=== PATIENT | female | born 1985 | race Caucasian/White ===

== ENCOUNTER 2017-01-26 05:26 | Emergency (ER) | payer OTHER ==
[~2017-01-26] VITALS: Wt 95.0 kg
[~2017-01-26 05:26] MED LIST: MAA5; RANI150T9
[2017-01-26] MEDS ORDERED: KETOROLAC 60 MG INJ IM STA (06:15)
[2017-01-26 07:39] LABS: ADD UMIC YES; UR ASCORBIC ACID NEGATIVE (NEGATIVE); UR BACTERIA FEW /HPF (NONE SEEN); UR BILIRUBIN (Dip) NEGATIVE (NEGATIVE); UR BLOOD (Dip) 3+ mg/dL (NEGATIVE); UR CLARITY CLOUDY (CLEAR); UR COLOR YELLOW (YELLOW); UR GLUCOSE (Dip) NEGATIVE (NEGATIVE); UR KETONES (Dip) NEGATIVE (NEGATIVE); UR LEUKOCYTE ESTERASE (Dip) NEGATIVE Leu/ul (NEGATIVE); UR MUCUS MANY /HPF (NONE SEEN); UR NITRITE (Dip) NEGATIVE (NEGATIVE); UR RBC > 182 /HPF (0-5); UR SPECIFIC GRAVITY (Dip) 1.031 (1.003-1.030); UR SQUAMOUS EPITHELIAL CELL FEW /HPF (FEW); UR TOTAL PROTEIN (Dip) 1+ mg/dl (NEGATIVE); UR UROBILINOGEN (Dip) NEGATIVE (NEGATIVE)
[2017-01-26 08:44] LABS: BASOPHILS % 0.3 % (0.0-2.0); EOSINOPHILS % 0.1 % (0.0-7.0); HEMATOCRIT 30.7 % (37.0-47.0); HEMOGLOBIN 9.1 g/dl (12.0-16.0); LYMPHOCYTES # 1.2 10^3/ul (0.8-2.9); LYMPHOCYTES % 9.8 % (15.0-51.0); MEAN CORPUSCULAR HEMOGLOBIN 20.4 pg (29.0-33.0); MEAN CORPUSCULAR HGB CONC 29.6 g/dl (32.0-37.0); MEAN PLATELET VOLUME 9.1 fl (7.4-10.4); MONOCYTE # 0.4 10^3/ul (0.3-0.9); MONOCYTES % 3.5 % (0.0-11.0); NEUTROPHILS % 85.9 % (39.0-77.0); PLATELET COUNT 488 10^3/UL (140-415); RED BLOOD COUNT 4.45 10^6/ul (4.20-5.40); RED CELL DISTRIBUTION WIDTH 16.7 % (11.5-14.5); WHITE BLOOD COUNT 11.7 10^3/ul (4.8-10.8)
--- NOTE | 2017-01-26 09:02 | RADRPT ---
PROCEDURE: Retroperitoneal US. CLINICAL INDICATION: pain TECHNIQUE: Multiple sonographic images of the kidneys and retroperitoneum were obtained. The imag es were reviewed on a PACS workstation. COMPARISON: No prior studies are available for comparison. FINDINGS: The kidneys are normal in size, contour, cortical thickness and cortical echogenicity. The right kidney measures 9.6 cm. The left kidney measures 10.5 cm. No kidney stones are visualized. There is no evidence for hydronephrosis. The urinary bladder is normal. RPTAT: AA IMPRESSION: Unremarkable retroperitoneal ultrasound. .Cory Tyler MD, MD Date Time Electronically viewed and signed by .Cory Tyler MD, on 01/26/2017 09:02 .S/
[2017-01-26 09:18] LABS: ALBUMIN 3.9 g/dl (3.3-4.9); ALBUMIN/GLOBULIN RATIO 1.08; CALCIUM 9.3 mg/dl (8.4-10.2); CREATININE 0.6 mg/dl (0.44-1.00); POTASSIUM 4.7 mmol/L (3.5-5.1); TOTAL PROTEIN 7.5 g/dl (6.1-8.1)
[2017-01-26] MEDS ORDERED: IBUP-1542 PO (09:55)
[2017-01-26] MEDS ORDERED: HYDR-906 PO (09:55)
[2017-01-26] MEDS ORDERED: FER325 PO (09:55)
--- NOTE | 2017-01-26 10:41 | ERD ---
ER Documentation Chief Complaint Date/Time DATE: 01/26/17 TIME: 10:29 Chief Complaint Left side flank pain HPI 31-year-old female patient with no significant past medical history presents to the ED complaining of left-sided flank pain that started 2 hours prior to arrival. Describes the pain as sharp and rates it a 10 out of 10. States that her last menstruation is irregular. Denies any dysuria, urgency, frequency, hematuria, nausea, vomiting, abdominal pain, chest pain, shortness of breath, fever, chills. ROS All systems reviewed and are negative except as per history of present illness. Medications Home Meds Active Scripts Ferrous Sulfate* (Ferrous Sulfate*) 325 Mg Tabec, 325 MG PO BID, #30 TAB Prov:ANETA CORTEZ PA-C 01/26/17 Hydrocodone/Acetaminophen ([place] 5-325 Tablet) 1 Each Tablet, 1 TAB PO Q6H Y for PAIN, #7 TAB Prov:ANETA CORTEZ PA-C 01/26/17 Ibuprofen* (Motrin*) 600 Mg Tab, 600 MG PO Q8, #3 TAB Prov:ANETA CORTEZ PA-C 01/26/17 Reported Medications Ranitidine Hcl* (Zantac*) 150 Mg Capsule 01/21/11 Al Hydroxide/Mg Hydroxide (Maalox) 148 Ml Susp 01/21/11 [None ] No Conflict Check 12/21/10 Allergies Allergies: Coded Allergies: No Known Allergy (Verified Allergy, Unknown, NA, 12/21/10) PMhx/Soc Medical and Surgical Hx: pt denies Medical Hx, pt denies Surgical Hx History of Surgery: No Anesthesia Reaction: No Hx Neurological Disorder: No Hx Respiratory Disorders: No Hx Cardiac Disorders: No Hx Psychiatric Problems: No Hx Miscellaneous Medical Probl: No Hx Alcohol Use: No Hx Substance Use: No Hx Tobacco Use: No Physical Exam Vitals Vital Signs Date Time Temp Pulse Resp B/P Pulse Ox O2 Delivery O2 Flow Rate FiO2 01/26/17 05:28 98.0 81 24 168/94 100 Physical Exam Const: [id number], well-nourished. In no acute distress. Head: Atraumatic, normocephalic Eyes: Normal Conjunctiva without injection. No purulent discharge. ENT: Normal external ear, nose. Moist oropharynx without tonsillar exudates. Non -erythematous pharynx. Uvula midline. No drooling. No trismus. Neck: No cervical midline tenderness. Full range of motion. No meningismus. No cervical lymphadenopathy. No JVD. Resp: Clear to auscultation bilaterally. No wheezing, rhonchi, rales, or crackles. No accessory muscle use. No retractions. Cardio: Regular rate and rhythm. No murmurs, rubs or gallops. Abd: Soft, nontender, non distended. Normal bowel sounds. No palpable masses. No rebound tenderness. No guarding. Negative McBurney's point. Negative psoas sign. Negative obturator sign. Skin: No petechiae or rashes Back: No midline tenderness. Left CVA tenderness. Ext: No cyanosis, or edema. Neur: Awake and alert. Normal gait. Normal coordination. Psych: Normal Mood and Affect Result Diagram: 01/26/1782401/26/17 0825 Results 24 hrs Laboratory Tests Test 01/26/17 06:30 01/26/17 08:25 Urine Color YELLOW Urine Clarity CLOUDY Urine pH 5.0 Urine Specific [place] 1.031 Urine Ketones NEGATIVEmg/dL Urine Nitrite NEGATIVEmg/dL Urine Bilirubin NEGATIVEmg/dL Urine Urobilinogen NEGATIVEmg/dL Urine Leukocyte Esterase NEGATIVELeu/ul Urine Microscopic RBC > 182/HPF Urine Microscopic WBC 6/HPF Urine Squamous Epithelial Cells FEW/HPF Urine Calcium Oxalate Crystals FEW/HPF Urine Bacteria FEW/HPF Urine Mucus MANY/HPF Urine Hemoglobin 3+mg/dL Urine Glucose NEGATIVEmg/dL Urine Total Protein 1+mg/dl White Blood Count 11.710^3/ul Red Blood Count 4.4510^6/ul Hemoglobin 9.1g/dl Hematocrit 30.7% Mean Corpuscular Volume 69.0fl Mean Corpuscular Hemoglobin 20.4pg Mean Corpuscular Hemoglobin Concent 29.6g/dl Red Cell Distribution Width 16.7% Platelet Count 06117^3/UL Mean Platelet Volume 9.1fl Neutrophils % 85.9% Lymphocytes % 9.8% Monocytes % 3.5% Eosinophils % 0.1% Basophils % 0.3% Nucleated Red Blood Cells % 0.0/100WBC Neutrophils # (Manual) 10.110^3/ul Lymphocytes # 1.210^3/ul Monocytes # 0.410^3/ul Eosinophils # 0.010^3/ul Basophils # 0.010^3/ul Nucleated Red Blood Cells # 0.010^3/ul Sodium Level 141mmol/L Potassium Level 4.7mmol/L Chloride Level 107mmol/L Carbon Dioxide Level 24mmol/L Anion Gap 15 Blood Urea Nitrogen 15mg/dl Creatinine 0.60mg/dl Glucose Level 128mg/dl Calcium Level 9.3mg/dl Total Bilirubin 0.0mg/dl Direct Bilirubin 0.00mg/dl Indirect Bilirubin 0.0mg/dl Aspartate Amino Transf (AST/SGOT) 19IU/L Alanine Aminotransferase (ALT/SGPT) 22IU/L Alkaline Phosphatase 78IU/L Total Protein 7.5g/dl Albumin 3.9g/dl Globulin 3.60g/dl Albumin/Globulin Ratio 1.08 Lipase 79U/L Current Medications Medications (Trade) Dose Ordered Sig/Robert Route PRN Reason Start Time Stop Time Status Last Admin Dose Admin Ketorolac Tromethamine (Toradol) 60 mg ONCE STAT IM 01/26/17 06:15 01/26/17 06:17 DC 01/26/17 06:32 Procedures/MDM 31-year-old female patient with no significant past medical history presents the ED complaining of left-sided flank pain that started earlier today. Patient is afebrile and nontoxic-appearing. Patient has normal vital signs. Initially a urinalysis was ordered to further evaluate patient. It showed 3+ hematuria, therefore patient was further evaluated with a CBC, CMP, lipase, renal ultrasound. CBC: Leukocytosis of 11.7. No e/o of systemic infection. Hbg 9.1 Hct 30.7 MCV 69 Hct 20.4 likely microcytic anemia CMP: No e/o severe acidosis, alkalosis, renal failure, diabetic ketoacidosis, liver disease Lipase within normal limits. Urine: No leukocyte esterase, no nitrites, no hematuria. PROCEDURE: Retroperitoneal US. CLINICAL INDICATION: pain TECHNIQUE: Multiple sonographic images of the kidneys and retroperitoneum were obtained. The images were reviewed on a PACS workstation. COMPARISON: No prior studies are available for comparison. FINDINGS: The kidneys are normal in size, contour, cortical thickness and cortical echogenicity. The right kidney measures 9.6 cm. The left kidney measures 10.5 cm. No kidney stones are visualized. There is no evidence for hydronephrosis. The urinary bladder is normal. RPTAT: AA IMPRESSION: Unremarkable retroperitoneal ultrasound. Based on patient's urinalysis, it showed 3+ hematuria with calcium oxalate crystals noted in the urine. Patient likely has a renal/bladder stone. No obstruction or hydronephrosis noted on the ultrasound. BUN and creatinine are within normal limits. Low suspicion for septic renal stone, gastritis, GERD, peptic ulcer disease, cholecystitis, choledocholithiasis, cholangitis, pancreatitis, appendicitis, bowel obstruction, ileus, volvulus, nephrolithiasis , pyelonephritis, hepatitis, perforated viscus, diverticulitis, abdominal hernia , acute abdomen, mesenteric ischemia or other emergent conditions. Discharge medications: Ferrous sulfate, [place], Ibuprofen Follow up with primary care physician in 1-2 days. Instructed patient to return to the ED sooner for any worsening symptoms. Patient's questions were answered. Patient understood and agreed with discharge plan. Patient discharged stable. Departure Diagnosis: Primary Impression: Flank pain Condition: Stable Patient Instructions: Anemia, Type Not Specified (Adult), Flank Pain, Uncertain Cause, Kidney Stone W/ Colic, Kidney Stone (Urine) Referrals: [facility] YOU HAVE RECEIVED A MEDICAL SCREENING EXAM AND THE RESULTS INDICATE THAT YOU DO NOT HAVE A CONDITION THAT REQUIRES URGENT TREATMENT IN THE EMERGENCY DEPARTMENT. FURTHER EVALUATION AND TREATMENT OF YOUR CONDITION CAN WAIT UNTIL YOU ARE SEEN IN YOUR DOCTORS OFFICE WITHIN THE NEXT 1-2 DAYS. IT IS YOUR RESPONSIBILITY TO MAKE AN APPOINTMENT FOR FOLOW-UP CARE. IF YOU HAVE A PRIMARY DOCTOR --you should call your primary doctor and schedule an appointment IF YOU DO NOT HAVE A PRIMARY DOCTOR YOU CAN CALL OUR PHYSICIAN REFERRAL HOTLINE AT IF YOU CAN NOT AFFORD TO SEE A PHYSICIAN YOU CAN CHOSE FROM THE FOLLOWING [facility] [address] [facility]. [facility] [address] [facility]. [facility] [address] [facility]. [facility] [address] [facility]. [facility] [address] [facility]. [facility]. [address] [facility]. [facility] YOU HAVE RECEIVED A MEDICAL SCREENING EXAM AND THE RESULTS INDICATE THAT YOU DO NOT HAVE A CONDITION THAT REQUIRES URGENT TREATMENT IN THE EMERGENCY DEPARTMENT. FURTHER EVALUATION AND TREATMENT OF YOUR CONDITION CAN WAIT UNTIL YOU ARE SEEN IN YOUR DOCTORS OFFICE WITHIN THE NEXT 1-2 DAYS. IT IS YOUR RESPONSIBILITY TO MAKE AN APPOINTMENT FOR FOLOW-UP CARE. IF YOU HAVE A PRIMARY DOCTOR --you should call your primary doctor and schedule and appointment IF YOU DO NOT HAVE A PRIMARY DOCTOR YOU CAN CALL OUR PHYSICIAN REFERRAL HOTLINE AT . IF YOU CAN NOT AFFORD TO SEE A PHYSICIAN YOU CAN CHOSE FROM THE FOLLOWING [facility] INSTITUTIONS: [facility] [address] [place] [address] [facility] [address] [place] [address] [facility] [address] [place] [address] [facility] Additional Instructions: FOLLOW UP WITH YOUR PRIMARY CARE PHYSICIAN TOMORROW for a referral to a urologist. Return to this facility if you are not improving as expected - fever , nausea, vomiting, abdominal pain, etc. ANETA CORTEZ PA-C Jan 26, 2017 10:41 ANETA CORTEZ PA-C Jan 26, 2017 10:41
== END 2017-01-26 11:02 | disposition home or self-care (01) ==
LOC: FTE 05:26
DX: R10.9 Unspecified abdominal pain (principal)
CPT/HCPCS: 36415; 76775; 80053; 81001; 83690; 85025; 96372; J1885; Z7502